=== PATIENT | female | born 1985 | race African-American/Black ===

== ENCOUNTER 2020-11-07 22:40 | Emergency (ER) | payer MEDICAID ==
[~2020-11-07] VITALS: Ht 170.2 cm; Wt 87.1 kg
[2020-11-07 22:55] VITALS: BP_SYST 157
--- NOTE | 2020-11-07 22:55 | NUR ---
Patient to ER bed 4 to gown for evaluation. Side rails up. Report given to FRANCISCO DOCKERY.
--- NOTE | 2020-11-07 22:56 | NUR ---
Came in ER this 35year old female ambulatory from home, AAOX4, breathing spontaneously at room air, not in distress noted. With chief complaints of both inner thigh rashes with pain 2 weeks, known with Hypertension Cor pulmonale and Heart failure on medication, admitted to [facility] and discharge last 10/23/2020. no surgical and no known allergy. initial vital sign taken and recorded, stable
--- NOTE | 2020-11-07 23:00 | NUR ---
ER Dr. BLANKENSHIP at bedside examining patient.
--- NOTE | 2020-11-07 23:22 | NUR ---
Seen and examined by Dr. Shen, ordered to get a swab in inner thigh blister
[2020-11-07] MEDS ORDERED: cefTRIAXone 1 GM in LIDOCAINE 1%, 20 ML MDV 2.1 ML IM ONE (23:30)
[2020-11-07] MEDS ORDERED: HYDROcodone/ACETAMIN 5-325 MG TAB (NORCO/ VICODIN) PO ONE (23:30)
[2020-11-07] MEDS ORDERED: LIDOCAINE 1%, 20 ML MDV 0 ML ONE (23:37)
[2020-11-07] MEDS ORDERED: cefTRIAXone 1 GM VIAL ONE (23:37)
--- NOTE | 2020-11-07 23:45 | NUR ---
Wound culture swab taken by Dr. BLANKENSHIP, ER attending and sent to lab
[2020-11-08] MEDS ORDERED: IBUP-1970 PO (00:01)
--- NOTE | 2020-11-08 00:02 | NUR ---
Ceftriaxone 1gm IV not given,cancelled by Dr. Shen
[2020-11-08 00:30] VITALS: BP_SYST 146
--- NOTE | 2020-11-08 00:30 | NUR ---
Patient given written and verbal discharge instructions and verbalizes understanding. ER MD discussed with patient the results and treatment provided. Patient in stable condition. ID arm band removed. I Rx of given. Patient educated on pain management and to follow up with PMD. Pain Scale 2/10. Opportunity for questions provided and answered. Medication side effect fact sheet provided.
[2020-11-08] MEDS ORDERED: SULF1TAB48 PO (19:00)
== END 2020-11-08 00:30 | disposition home or self-care (01) ==
LOC: SED 22:40
DX: R21 Rash and other nonspecific skin eruption (principal); I11.0 Hypertensive heart disease with heart failure; I50.9 Heart failure, unspecified
CPT/HCPCS: 87070-TC; 87075-TC; 99283; J0696; J2001

== ENCOUNTER 2023-03-11 08:33 | Inpatient (IN) | payer MEDICAID ==
[~2023-03-11] VITALS: Ht 177.8 cm; Wt 112.3 kg
[~2023-03-11 08:33] MED LIST: COR6.25 PO; FURO-149 PO; NEU100 PO; SACU1TAB PO; SILD20TA PO; SPIR25TA PO
[2023-03-11 08:39] VITALS: BP_SYST 152; PULSE 113; RESP 20; TEMP 98; O2SAT 92
[2023-03-11] MEDS ORDERED: levETIRAcetam 500 MG TABLET PO ONE (08:45)
[2023-03-11 09:23] LABS: COVID19 ANTIGEN SOFIA FIA NEGATIVE (NEGATIVE)
[2023-03-11 09:35] LABS: INFLUENZA TYPE A negative (NEGATIVE); INFLUENZA TYPE B NEGATIVE (NEGATIVE)
[2023-03-11 09:54] LABS: BASOPHILS % (AUTO) 0.8 % (0.0-2.0); EOSINOPHILS % (AUTO) 0.6 % (0.0-4.0); HEMATOCRIT 51.9 % (36-48); HEMOGLOBIN 15.9 g/dL (12.0-16.0); LYMPHOCYTES # (AUTO) 1.6 K/uL (1.0-5.5); LYMPHOCYTES % (AUTO) 36.6 % (20.5-51.5); MEAN CORPUSCULAR HEMOGLOBIN 25 pg (27-31); MEAN CORPUSCULAR HGB CONC 31 % (32-36); MEAN CORPUSCULAR VOLUME 81 fL (79.0-98.0); MONOCYTES # (AUTO) 0.3 K/uL (0.0-1.0); MONOCYTES % (AUTO) 7.1 % (1.7-9.3); NEUTROPHILS # (AUTO) 2.5 K/uL (1.8-7.7); NEUTROPHILS % (AUTO) 54.9 % (40.0-70.0); PLATELET COUNT (AUTO) 203 K/uL (130-430); RED BLOOD CELL COUNT(AUTO) 6.45 MIL/uL (4.2-6.2); RED CELL DISTRIBUTION WIDTH 17.9 % (9.0-15.0); WHITE BLOOD COUNT (AUTO) 4.5 K/uL (4.8-10.8)
[2023-03-11 09:58] LABS: SERUM HCG (QUALITATIVE) NEGATIVE (NEGATIVE)
[2023-03-11 10:04] LABS: ANION GAP 11 (5-15); CALCIUM 8.3 mg/dL (8.4-11.0); CARBON DIOXIDE 28 mmol/L (23-29); CHLORIDE 101 mmol/L (98-107); CREATININE 1.46 mg/dL (0.55-1.30); GFR AFRICAN AMERICAN 51 mL/min (>90); GFR NON AFRICAN-AMERICAN 42 mL/min (>90); GLUCOSE 98 mg/dL (74-106); POTASSIUM 3.4 mmol/L (3.5-5.1); SODIUM SERUM 140 mmol/L (136-145); UREA NITROGEN, BLOOD 21 mg/dL (8-21)
[2023-03-11 10:07] LABS: INR 1.4 (0.8-1.2); PROTHROMBIN TIME 13.8 SECS (9.5-12.5)
[2023-03-11 10:23] LABS: ALANINE AMINOTRANSFERASE 23 U/L (12-78); ALBUMIN 2.9 g/dL (3.4-4.8); ASPARTATE AMINOTRANSFERASE 40 U/L (10-37); TOTAL BILIRUBIN 1.1 mg/dL (0.0-1.0); TOTAL PROTEIN, SERUM 6.6 g/dL (6.4-8.3)
[2023-03-11] MEDS ORDERED: ASPIRIN 81 MG TAB.CHEW PO ONE (10:30)
[2023-03-11] MEDS ORDERED: ASPIRIN 81 MG TAB.CHEW ONE (10:31)
[2023-03-11 11:18] LABS: ANISOCYTOSIS 1+; HYPOCHROMASIA 1+
[2023-03-11 11:19] LABS: OVALOCYTES FEW; TARGET CELLS FEW
[2023-03-11] MEDS ORDERED: CARVEDILOL 6.25 MG TABLET (COREG) PO SCH (21:00)
[2023-03-11] MEDS ORDERED: SACUBITRIL/VALSARTAN 24 MG-26 MG 1 TABLET PO SCH (21:00)
[2023-03-11] MEDS ORDERED: hydrALAZINE HCL 20 MG/ML VIAL IVP PRN (22:00)
[2023-03-11] MEDS ORDERED: NALOXONE HCL 0.4 MG/ML AMP (NARCAN) IVP PRN ×2 (22:00)
[2023-03-11] MEDS: ONDANSETRON HCL 4 MG/2 ML VIAL IVP PRN (22:25)
[2023-03-11] MEDS: MORPHINE 2 MG/ML INJ. SYRINGE IVP PRN (22:28)
[2023-03-11] MEDS: SILDENAFIL CITRATE 20 MG TABLET PO SCH (22:34)
[2023-03-11] MEDS: GABAPENTIN 100 MG CAPSULE PO SCH (22:35)
[2023-03-11] MEDS: FUROSEMIDE 40 MG TABLET PO SCH (22:35)
[2023-03-12] VITALS (8 sets, daily range): BP systolic 70–165; PULSE 80–106; RESP 16–23; TEMP 97–98.4; O2SAT 94–99
[2023-03-12] MEDS: MORPHINE 2 MG/ML INJ. SYRINGE IVP PRN (03:52)
[2023-03-12] MEDS: ONDANSETRON HCL 4 MG/2 ML VIAL IVP PRN (03:53)
[2023-03-12 06:51] LABS: BASOPHILS % (AUTO) 0.6 % (0.0-2.0); HEMATOCRIT 52.6 % (36-48); HEMOGLOBIN 15.9 g/dL (12.0-16.0); LYMPHOCYTES % (AUTO) 54.2 % (20.5-51.5); MEAN CORPUSCULAR HEMOGLOBIN 25 pg (27-31); MEAN CORPUSCULAR HGB CONC 30 % (32-36); MEAN CORPUSCULAR VOLUME 82 fL (79.0-98.0); MONOCYTES # (AUTO) 0.5 K/uL (0.0-1.0); MONOCYTES % (AUTO) 12.7 % (1.7-9.3); NEUTROPHILS # (AUTO) 1.2 K/uL (1.8-7.7); PLATELET COUNT (AUTO) 206 K/uL (130-430); RED BLOOD CELL COUNT(AUTO) 6.45 MIL/uL (4.2-6.2); WHITE BLOOD COUNT (AUTO) 3.8 K/uL (4.8-10.8)
[2023-03-12 07:56] LABS: CREATININE 1.31 mg/dL (0.55-1.30); POTASSIUM 4.2 mmol/L (3.5-5.1); TOTAL BILIRUBIN 1.2 mg/dL (0.0-1.0); TOTAL PROTEIN, SERUM 6.9 g/dL (6.4-8.3)
[2023-03-12 08:13] LABS: NEUTROPHILS % (AUTO) 31.5 % (40.0-70.0)
[2023-03-12] MEDS ORDERED: levETIRAcetam 500 MG TABLET PO SCH (09:00)
[2023-03-12] MEDS: levETIRAcetam 500 MG TABLET PO SCH ×2 (09:08→20:27)
[2023-03-12] MEDS: SILDENAFIL CITRATE 20 MG TABLET PO SCH ×3 (09:08→20:31)
[2023-03-12] MEDS: CARVEDILOL 12.5 MG TABLET (COREG) PO SCH ×2 (09:09→20:25)
[2023-03-12] MEDS: GABAPENTIN 100 MG CAPSULE PO SCH ×3 (09:10→20:29)
[2023-03-12] MEDS: FUROSEMIDE 40 MG TABLET PO SCH ×2 (09:10→20:29)
[2023-03-12] MEDS: SACUBITRIL/VALSARTAN 24 MG-26 MG 1 TABLET PO SCH ×2 (09:11→20:27)
[2023-03-12] MEDS ORDERED: ALBUMIN HUMAN 25% 100 ML IV ONE (13:15)
[2023-03-13] VITALS (8 sets, daily range): BP systolic 93–112; PULSE 55–103; RESP 18–20; TEMP 96.7–97.9; O2SAT 93–99
[2023-03-13] MEDS: GABAPENTIN 100 MG CAPSULE PO SCH ×3 (08:59→21:43)
[2023-03-13] MEDS: FUROSEMIDE 40 MG TABLET PO SCH ×2 (09:00→21:42)
[2023-03-13] MEDS: SACUBITRIL/VALSARTAN 24 MG-26 MG 1 TABLET PO SCH ×2 (09:00→21:42)
[2023-03-13] MEDS: SILDENAFIL CITRATE 20 MG TABLET PO SCH ×3 (09:00→21:40)
[2023-03-13] MEDS: CARVEDILOL 12.5 MG TABLET (COREG) PO SCH ×2 (09:00→21:41)
[2023-03-13] MEDS: levETIRAcetam 500 MG TABLET PO SCH ×2 (09:01→21:41)
[2023-03-13] MEDS: MORPHINE 2 MG/ML INJ. SYRINGE IVP PRN (17:11)
[2023-03-13 17:40] LABS: BARBITURATE, URINE NEGATIVE (NEG <=200); BENZODIAZEPINE, URINE NEGATIVE (NEG <=150); CANNABINOID, URINE NEGATIVE (NEG <=50); COCAINE, URINE NEGATIVE (NEG <=150); METHAMPHETAMINES SCREEN,URINE POSITIVE (NEG <=500); OPIATE, URINE POSITIVE (NEG <=100); PHENCYCLIDINE SCREEN,URINE NEGATIVE (NEG <=25); UR TRICYCLIC ANTIDEPRESSANTS NEGATIVE (NEG <=300); URINE AMPHETAMINE POSITIVE (NEG <=500); URINE METHADONE NEGATIVE (NEG <=200); URINE OXYCODONE SCREEN NEGATIVE (NEG <=100); URINE PROPOXYPHENE SCREEN NEGATIVE (NEG <=300)
[2023-03-14] VITALS (8 sets, daily range): BP systolic 90–123; PULSE 93–105; RESP 18–20; TEMP 96.9–98.4; O2SAT 95–100
[2023-03-14 04:58] LABS: BASOPHILS % (AUTO) 1.1 % (0.0-2.0); EOSINOPHILS # (AUTO) 0.2 K/uL (0.0-0.4); EOSINOPHILS % (AUTO) 3.4 % (0.0-4.0); HEMATOCRIT 44.8 % (36-48); HEMOGLOBIN 13.7 g/dL (12.0-16.0); LYMPHOCYTES % (AUTO) 43.1 % (20.5-51.5); MEAN CORPUSCULAR HEMOGLOBIN 25 pg (27-31); MEAN CORPUSCULAR HGB CONC 31 % (32-36); MEAN CORPUSCULAR VOLUME 81 fL (79.0-98.0); MONOCYTES # (AUTO) 0.6 K/uL (0.0-1.0); NEUTROPHILS # (AUTO) 1.8 K/uL (1.8-7.7); NEUTROPHILS % (AUTO) 39.4 % (40.0-70.0); PLATELET COUNT (AUTO) 202 K/uL (130-430); RED BLOOD CELL COUNT(AUTO) 5.56 MIL/uL (4.2-6.2); RED CELL DISTRIBUTION WIDTH 17.6 % (9.0-15.0); WHITE BLOOD COUNT (AUTO) 4.6 K/uL (4.8-10.8)
[2023-03-14 05:14] LABS: ALBUMIN 2.5 g/dL (3.4-4.8); CALCIUM 7.5 mg/dL (8.4-11.0); CREATININE 1.29 mg/dL (0.55-1.30); TOTAL BILIRUBIN 0.6 mg/dL (0.0-1.0); TOTAL PROTEIN, SERUM 5.5 g/dL (6.4-8.3)
[2023-03-14] MEDS: HYDROcodone/ACETAMIN 10-325 MG TAB PO PRN (06:47)
[2023-03-14] MEDS: SILDENAFIL CITRATE 20 MG TABLET PO SCH ×3 (09:00→21:00)
[2023-03-14] MEDS: FUROSEMIDE 40 MG/4 ML VIAL IVP SCH ×2 (09:00→23:24)
[2023-03-14] MEDS: CARVEDILOL 12.5 MG TABLET (COREG) PO SCH ×2 (09:00→21:00)
[2023-03-14] MEDS: SACUBITRIL/VALSARTAN 24 MG-26 MG 1 TABLET PO SCH ×2 (09:00→21:00)
[2023-03-14] MEDS: levETIRAcetam 500 MG TABLET PO SCH ×2 (09:33→21:04)
[2023-03-14] MEDS: GABAPENTIN 100 MG CAPSULE PO SCH ×3 (09:33→21:04)
[2023-03-14] MEDS: HYDROcodone/ACETAMIN 5-325 MG TAB (NORCO/ VICODIN) PO PRN (21:12)
[2023-03-15] VITALS (8 sets, daily range): BP systolic 90–120; PULSE 77–103; RESP 14–19; TEMP 96.8–97.6; O2SAT 93–98
[2023-03-15] MEDS: HYDROcodone/ACETAMIN 10-325 MG TAB PO PRN (02:15)
[2023-03-15 06:17] LABS: ALBUMIN 2.7 g/dL (3.4-4.8); CALCIUM 7.9 mg/dL (8.4-11.0); CREATININE 1.29 mg/dL (0.55-1.30); POTASSIUM 4.3 mmol/L (3.5-5.1); TOTAL BILIRUBIN 0.8 mg/dL (0.0-1.0); TOTAL PROTEIN, SERUM 6.1 g/dL (6.4-8.3)
[2023-03-15] MEDS: SILDENAFIL CITRATE 20 MG TABLET PO SCH ×3 (08:59→21:52)
[2023-03-15] MEDS: GABAPENTIN 100 MG CAPSULE PO SCH ×3 (09:00→21:52)
[2023-03-15] MEDS ORDERED: metOLazone 5 MG TABLET PO ONE (09:00)
[2023-03-15] MEDS: CARVEDILOL 12.5 MG TABLET (COREG) PO SCH ×2 (09:01→21:00)
[2023-03-15] MEDS: levETIRAcetam 500 MG TABLET PO SCH ×2 (09:01→21:52)
[2023-03-15] MEDS: SACUBITRIL/VALSARTAN 24 MG-26 MG 1 TABLET PO SCH ×2 (09:01→21:00)
[2023-03-15] MEDS: FUROSEMIDE 40 MG/4 ML VIAL IVP SCH ×2 (09:02→21:00)
[2023-03-15] MEDS: HYDROcodone/ACETAMIN 5-325 MG TAB (NORCO/ VICODIN) PO PRN (09:04)
[2023-03-15] MEDS: MORPHINE 2 MG/ML INJ. SYRINGE IVP PRN (09:56)
[2023-03-16 00:11] VITALS: BP_SYST 108; PULSE 92; RESP 14; TEMP 96.8; O2SAT 96
[2023-03-16 04:45] VITALS: BP_SYST 115; PULSE 100; RESP 16; TEMP 97.6; O2SAT 98
[2023-03-16] MEDS: MORPHINE 2 MG/ML INJ. SYRINGE IVP PRN ×2 (04:57→08:17)
[2023-03-16 07:46] VITALS: BP_SYST 119; PULSE 98; RESP 20; TEMP 96.8; O2SAT 98
[2023-03-16] MEDS: CARVEDILOL 12.5 MG TABLET (COREG) PO SCH ×2 (08:10→20:25)
[2023-03-16] MEDS: levETIRAcetam 500 MG TABLET PO SCH ×2 (08:10→20:25)
[2023-03-16] MEDS: GABAPENTIN 100 MG CAPSULE PO SCH ×3 (08:10→20:25)
[2023-03-16] MEDS: SILDENAFIL CITRATE 20 MG TABLET PO SCH ×4 (08:11→20:25)
[2023-03-16] MEDS: SACUBITRIL/VALSARTAN 24 MG-26 MG 1 TABLET PO SCH ×2 (08:14→20:25)
[2023-03-16] MEDS: FUROSEMIDE 40 MG/4 ML VIAL IVP SCH ×2 (08:16→23:44)
[2023-03-16 15:30] VITALS: BP_SYST 87; PULSE 97; RESP 20; TEMP 97.5; O2SAT 92
[2023-03-16] MEDS: HYDROcodone/ACETAMIN 10-325 MG TAB PO PRN (16:21)
[2023-03-16 19:50] VITALS: O2SAT 97
[2023-03-16 20:07] VITALS: BP_SYST 109; PULSE 93; RESP 18; TEMP 97.4; O2SAT 97
[2023-03-16] MEDS ORDERED: ALBUMIN HUMAN 25% 50 ML IV ONE ×2 (23:30→23:31)
[2023-03-17] VITALS (10 sets, daily range): BP systolic 80–100; PULSE 75–104; RESP 16–20; TEMP 96.5–97.6; O2SAT 95–99
[2023-03-17] MEDS: HYDROcodone/ACETAMIN 10-325 MG TAB PO PRN ×2 (04:46→16:07)
[2023-03-17 05:51] LABS: CALCIUM 8.5 mg/dL (8.4-11.0); CREATININE 1.4 mg/dL (0.55-1.30); POTASSIUM 4.4 mmol/L (3.5-5.1)
[2023-03-17] MEDS: FUROSEMIDE 40 MG/4 ML VIAL IVP SCH ×2 (09:00→22:20)
[2023-03-17] MEDS: CARVEDILOL 12.5 MG TABLET (COREG) PO SCH ×2 (09:00→22:21)
[2023-03-17] MEDS: SACUBITRIL/VALSARTAN 24 MG-26 MG 1 TABLET PO SCH ×2 (09:00→22:22)
[2023-03-17] MEDS: SILDENAFIL CITRATE 20 MG TABLET PO SCH ×3 (09:00→22:21)
[2023-03-17] MEDS: GABAPENTIN 100 MG CAPSULE PO SCH ×3 (09:05→22:21)
[2023-03-17] MEDS: levETIRAcetam 500 MG TABLET PO SCH ×2 (09:05→22:20)
[2023-03-17] MEDS: MORPHINE 2 MG/ML INJ. SYRINGE IVP PRN (22:23)
[2023-03-18] VITALS: BP_SYST 105; PULSE 100; RESP 18; TEMP 97; O2SAT 95
[2023-03-18 08:00] VITALS: BP_SYST 96; PULSE 101; RESP 18; TEMP 97; O2SAT 97
[2023-03-18] MEDS: CARVEDILOL 12.5 MG TABLET (COREG) PO SCH ×2 (09:00→21:26)
[2023-03-18] MEDS: SACUBITRIL/VALSARTAN 24 MG-26 MG 1 TABLET PO SCH ×2 (09:00→21:27)
[2023-03-18] MEDS: metOLazone 2.5 MG TABLET PO SCH (09:00)
[2023-03-18] MEDS: FUROSEMIDE 40 MG/4 ML VIAL IVP SCH ×2 (09:00→21:00)
[2023-03-18] MEDS: levETIRAcetam 500 MG TABLET PO SCH ×2 (09:57→21:26)
[2023-03-18] MEDS: GABAPENTIN 100 MG CAPSULE PO SCH ×3 (09:58→21:25)
[2023-03-18] MEDS: SILDENAFIL CITRATE 20 MG TABLET PO SCH ×3 (10:00→21:33)
[2023-03-18 12:30] VITALS: BP_SYST 101; PULSE 97; RESP 18; TEMP 97.6; O2SAT 94
[2023-03-18 16:45] VITALS: BP_SYST 100; PULSE 90; RESP 17; TEMP 98; O2SAT 94
[2023-03-18 20:00] VITALS: BP_SYST 117; PULSE 109; RESP 18; TEMP 98.2; O2SAT 94
[2023-03-18 20:30] VITALS: O2SAT 94
[2023-03-18] MEDS: MORPHINE 2 MG/ML INJ. SYRINGE IVP PRN (21:11)
[2023-03-18] MEDS: ONDANSETRON HCL 4 MG/2 ML VIAL IVP PRN (21:25)
[2023-03-19] VITALS (7 sets, daily range): BP systolic 91–119; PULSE 75–107; RESP 18; TEMP 96.9–98; O2SAT 95–100
[2023-03-19] MEDS: MORPHINE 2 MG/ML INJ. SYRINGE IVP PRN ×2 (01:16→21:00)
[2023-03-19 06:57] LABS: ALBUMIN 2.5 g/dL (3.4-4.8); CALCIUM 7.8 mg/dL (8.4-11.0); CREATININE 1.41 mg/dL (0.55-1.30); POTASSIUM 4.2 mmol/L (3.5-5.1); TOTAL BILIRUBIN 0.9 mg/dL (0.0-1.0); TOTAL PROTEIN, SERUM 5.9 g/dL (6.4-8.3)
[2023-03-19 07:26] LABS: EOSINOPHILS % (AUTO) 0.3 % (0.0-4.0); HEMATOCRIT 46.1 % (36-48); LYMPHOCYTES % (AUTO) 23.1 % (20.5-51.5); MEAN CORPUSCULAR HEMOGLOBIN 25 pg (27-31); MEAN CORPUSCULAR HGB CONC 30 % (32-36); MEAN CORPUSCULAR VOLUME 81 fL (79.0-98.0); MONOCYTES # (AUTO) 0.5 K/uL (0.0-1.0); MONOCYTES % (AUTO) 10.6 % (1.7-9.3); NEUTROPHILS # (AUTO) 2.9 K/uL (1.8-7.7); PLATELET COUNT (AUTO) 167 K/uL (130-430); RED BLOOD CELL COUNT(AUTO) 5.71 MIL/uL (4.2-6.2); RED CELL DISTRIBUTION WIDTH 17.5 % (9.0-15.0); WHITE BLOOD COUNT (AUTO) 4.5 K/uL (4.8-10.8)
[2023-03-19] MEDS: metOLazone 2.5 MG TABLET PO SCH (09:00)
[2023-03-19] MEDS: FUROSEMIDE 40 MG/4 ML VIAL IVP SCH ×2 (09:00→20:56)
[2023-03-19] MEDS: CARVEDILOL 12.5 MG TABLET (COREG) PO SCH ×2 (09:00→21:03)
[2023-03-19] MEDS: SILDENAFIL CITRATE 20 MG TABLET PO SCH ×3 (09:40→21:00)
[2023-03-19] MEDS: levETIRAcetam 500 MG TABLET PO SCH ×2 (09:40→21:00)
[2023-03-19] MEDS: GABAPENTIN 100 MG CAPSULE PO SCH ×3 (09:40→21:00)
[2023-03-19] MEDS: HYDROcodone/ACETAMIN 10-325 MG TAB PO PRN (09:41)
[2023-03-19] MEDS: SACUBITRIL/VALSARTAN 24 MG-26 MG 1 TABLET PO SCH ×2 (09:43→21:04)
[2023-03-19] MEDS: ONDANSETRON HCL 4 MG/2 ML VIAL IVP PRN (21:00)
[2023-03-20] VITALS (8 sets, daily range): BP systolic 87–136; PULSE 87–102; RESP 16–20; TEMP 96.9–97.9; O2SAT 95–100
[2023-03-20] MEDS: HYDROcodone/ACETAMIN 10-325 MG TAB PO PRN (00:48)
[2023-03-20 05:06] LABS: CREATININE 1.34 mg/dL (0.55-1.30); POTASSIUM 3.7 mmol/L (3.5-5.1)
[2023-03-20 05:18] LABS: BASOPHILS % (AUTO) 1.2 % (0.0-2.0); EOSINOPHILS # (AUTO) 0.1 K/uL (0.0-0.4); HEMATOCRIT 44.8 % (36-48); HEMOGLOBIN 14.1 g/dL (12.0-16.0); LYMPHOCYTES # (AUTO) 2.1 K/uL (1.0-5.5); LYMPHOCYTES % (AUTO) 53.6 % (20.5-51.5); MEAN CORPUSCULAR HEMOGLOBIN 25 pg (27-31); MEAN CORPUSCULAR HGB CONC 31 % (32-36); MEAN CORPUSCULAR VOLUME 80 fL (79.0-98.0); MONOCYTES # (AUTO) 0.6 K/uL (0.0-1.0); MONOCYTES % (AUTO) 16.7 % (1.7-9.3); NEUTROPHILS % (AUTO) 26.5 % (40.0-70.0); PLATELET COUNT (AUTO) 192 K/uL (130-430); RED BLOOD CELL COUNT(AUTO) 5.61 MIL/uL (4.2-6.2); RED CELL DISTRIBUTION WIDTH 17.5 % (9.0-15.0); WHITE BLOOD COUNT (AUTO) 3.8 K/uL (4.8-10.8)
[2023-03-20] MEDS: CARVEDILOL 12.5 MG TABLET (COREG) PO SCH ×2 (09:00→21:00)
[2023-03-20] MEDS: FUROSEMIDE 40 MG/4 ML VIAL IVP SCH ×2 (09:00→21:00)
[2023-03-20] MEDS: metOLazone 2.5 MG TABLET PO SCH (09:00)
[2023-03-20] MEDS: SACUBITRIL/VALSARTAN 24 MG-26 MG 1 TABLET PO SCH ×2 (09:00→21:00)
[2023-03-20] MEDS: SILDENAFIL CITRATE 20 MG TABLET PO SCH ×3 (09:00→21:36)
[2023-03-20] MEDS: GABAPENTIN 100 MG CAPSULE PO SCH ×3 (09:34→21:36)
[2023-03-20] MEDS: levETIRAcetam 500 MG TABLET PO SCH ×2 (09:34→21:35)
[2023-03-20] MEDS: MORPHINE 2 MG/ML INJ. SYRINGE IVP PRN ×2 (16:13→23:31)
[2023-03-21 00:32] VITALS: BP_SYST 107; PULSE 66; RESP 18; TEMP 97.4; O2SAT 94
[2023-03-21 08:09] VITALS: BP_SYST 95; PULSE 88; RESP 18; TEMP 97; O2SAT 94
[2023-03-21] MEDS: SILDENAFIL CITRATE 20 MG TABLET PO SCH ×2 (09:00→15:27)
[2023-03-21] MEDS: metOLazone 2.5 MG TABLET PO SCH (09:00)
[2023-03-21] MEDS: CARVEDILOL 12.5 MG TABLET (COREG) PO SCH (09:00)
[2023-03-21] MEDS: SACUBITRIL/VALSARTAN 24 MG-26 MG 1 TABLET PO SCH (09:00)
[2023-03-21] MEDS ORDERED: FUROSEMIDE 40 MG TABLET PO SCH (09:00)
[2023-03-21] MEDS: levETIRAcetam 500 MG TABLET PO SCH (09:03)
[2023-03-21] MEDS: GABAPENTIN 100 MG CAPSULE PO SCH ×2 (09:03→15:27)
[2023-03-21 09:21] VITALS: O2SAT 94
[2023-03-21] MEDS: HYDROcodone/ACETAMIN 10-325 MG TAB PO PRN (12:26)
[2023-03-21 16:00] VITALS: BP_SYST 122; PULSE 93; RESP 18; TEMP 98; O2SAT 100
== END 2023-03-21 18:25 | disposition home or self-care (01) | DRG 190 ==
LOC: SED 08:33 → STU 11:57
PROVIDERS: ADMIT Internal Medicine; ATTEND Internal Medicine
DX: I21.4 Non-ST elevation (NSTEMI) myocardial infarction (principal); R65.11 Systemic inflammatory response syndrome (SIRS) of non-infectious origin with acute organ dysfunction; I50.43 Acute on chronic combined systolic (congestive) and diastolic (congestive) heart failure; I11.0 Hypertensive heart disease with heart failure; I27.20 Pulmonary hypertension, unspecified; I42.9 Cardiomyopathy, unspecified; G40.909 Epilepsy, unspecified, not intractable, without status epilepticus; R32 Unspecified urinary incontinence; Z20.822 Contact with and (suspected) exposure to COVID-19; Z59.01 Sheltered homelessness; Z79.899 Other long term (current) drug therapy; Z82.49 Family history of ischemic heart disease and other diseases of the circulatory system; Z86.718 Personal history of other venous thrombosis and embolism; Z86.73 Personal history of transient ischemic attack (TIA), and cerebral infarction without residual deficits
CPT/HCPCS: 36415; 71045; 80048; 80053; 80307; 83605; 83880; 84484; 84703; 85025; 85610-TC; 85730-TC; 87081; 97110-GP; 97116-GP; 97530-GP; 99285; G0378; J0360; J1940; J2270; J2405; J7030; P9046

== ENCOUNTER 2023-10-10 16:39 | Observation (INO) | payer MEDICAID ==
[~2023-10-10] VITALS: Ht 172.7 cm; Wt 96.2 kg
[~2023-10-10 16:39] MED LIST changes: -SPIR25TA PO
[2023-10-10 16:50] VITALS: BP_SYST 101; PULSE 88; RESP 19; TEMP 98; O2SAT 95
[2023-10-10] MEDS: MORPHINE 2 MG/ML INJ. SYRINGE IVP ONE ×2 (17:53→20:27)
[2023-10-10 18:08] LABS: BASOPHILS # (AUTO) 0.1 K/uL (0.0-0.2); BASOPHILS % (AUTO) 1.3 % (0.0-2.0); EOSINOPHILS # (AUTO) 0.2 K/uL (0.0-0.4); EOSINOPHILS % (AUTO) 3.2 % (0.0-4.0); HEMATOCRIT 46.2 % (36-48); HEMOGLOBIN 14.8 g/dL (12.0-16.0); LYMPHOCYTES # (AUTO) 1.7 K/uL (1.0-5.5); MEAN CORPUSCULAR HEMOGLOBIN 25 pg (27-31); MEAN CORPUSCULAR HGB CONC 32 % (32-36); MEAN CORPUSCULAR VOLUME 79 fL (79.0-98.0); MONOCYTES # (AUTO) 0.7 K/uL (0.0-1.0); MONOCYTES % (AUTO) 15.5 % (1.7-9.3); NEUTROPHILS # (AUTO) 2.1 K/uL (1.8-7.7); PLATELET COUNT (AUTO) 274 K/uL (130-430); RED BLOOD CELL COUNT(AUTO) 5.85 MIL/uL (4.2-6.2); RED CELL DISTRIBUTION WIDTH 18.5 % (9.0-15.0); WHITE BLOOD COUNT (AUTO) 4.7 K/uL (4.8-10.8)
[2023-10-10 18:16] LABS: ANION GAP 10 (5-15); CALCIUM 9.3 mg/dL (8.4-11.0); CARBON DIOXIDE 27 mmol/L (23-29); CHLORIDE 103 mmol/L (98-107); CREATININE 1.06 mg/dL (0.55-1.30); GFR AFRICAN AMERICAN 74 mL/min (>90); GFR NON AFRICAN-AMERICAN 61 mL/min (>90); GLUCOSE 74 mg/dL (74-106); POTASSIUM 4.2 mmol/L (3.5-5.1); SODIUM SERUM 140 mmol/L (136-145); UREA NITROGEN, BLOOD 21 mg/dL (8-21)
[2023-10-10 18:22] LABS: ALANINE AMINOTRANSFERASE 19 U/L (12-78); ALBUMIN 3.1 g/dL (3.4-4.8); ASPARTATE AMINOTRANSFERASE 21 U/L (10-37); BILIRUBIN,DIRECT 0.4 mg/dL (0.0-0.3); TOTAL BILIRUBIN 0.8 mg/dL (0.0-1.0); TOTAL PROTEIN, SERUM 7.6 g/dL (6.4-8.3)
[2023-10-10] MEDS ORDERED: METO25TA6 PO (18:44)
[2023-10-10] MEDS ORDERED: SPIR25TA6 PO (18:44)
[2023-10-10] MEDS ORDERED: FURO40TA5 PO (18:44)
[2023-10-10] MEDS ORDERED: SILD20TA10 PO (18:44)
[2023-10-10] MEDS ORDERED: HYDR25TA86 PO (18:44)
[2023-10-10 19:39] LABS: INFLUENZA TYPE A Negative (NEGATIVE); INFLUENZA TYPE B NEGATIVE (NEGATIVE)
[2023-10-10] MEDS ORDERED: ACETAMINOPHEN 325 MG TABLET PO PRN (20:00)
[2023-10-10] MEDS ORDERED: IPRATROPIUM/ALBUTEROL SULFATE 3 ML AMPUL.NEB (DUONEB) INH PRN (20:00)
[2023-10-10] MEDS ORDERED: MUPIROCIN 2% TOPICAL OINTMENT 22 GM NS PRN (20:15)
[2023-10-10] MEDS ORDERED: ZOLPIDEM TARTRATE 5 MG TABLET PO PRN (20:15)
[2023-10-10] MEDS ORDERED: ACETAMINOPHEN 500 MG TABLET PO PRN ×3 (20:15)
[2023-10-10] MEDS ORDERED: POTASSIUM CHLORIDE 20 MEQ TABLET.ER PO PRN (20:15)
[2023-10-10] MEDS ORDERED: DOCUSATE SODIUM 100 MG CAPSULE PO PRN (20:15)
[2023-10-10] MEDS ORDERED: MAGNESIUM SULFATE 50 ML IV PRN (20:15)
[2023-10-10 20:22] VITALS: BP_SYST 103; PULSE 86; O2SAT 96
[2023-10-10] MEDS: FUROSEMIDE 40 MG/4 ML VIAL IVP ONE (20:27)
[2023-10-10] MEDS: ONDANSETRON HCL 4 MG/2 ML VIAL IVP PRN (20:35)
[2023-10-10] MEDS: GABAPENTIN 100 MG CAPSULE PO SCH (21:25)
[2023-10-10] MEDS: CARVEDILOL 6.25 MG TABLET (COREG) PO SCH (21:25)
[2023-10-10] MEDS: SILDENAFIL CITRATE 20 MG TABLET PO SCH (21:26)
[2023-10-10] MEDS: HEPARIN SODIUM,PORCINE 5,000 UNITS/ML VIAL SUBCUT SCH (21:30)
[2023-10-11] MEDS: IBUPROFEN 800 MG TABLET PO PRN (07:46)
[2023-10-11] MEDS ORDERED: IBUPROFEN 800 MG TABLET ONE (07:47)
[2023-10-11 09:09] LABS: BILIRUBIN,URINE NEGATIVE (NEGATIVE); BLOOD, URINE NEGATIVE (NEGATIVE); CLARITY/URINE CLEAR (CLEAR); COLOR,URINE YELLOW (YELLOW); GLUCOSE,URINE NEGATIVE (NEGATIVE); KETONES,URINE NEGATIVE (NEGATIVE); LEUKOCYTE ESTERASE ,URINE 1+ (NEGATIVE); NITRITE, URINE NEGATIVE (NEGATIVE); PROTEIN URINE NEGATIVE (NEGATIVE); UROBILINOGEN,URINE 0.2 (0.2-1.0)
[2023-10-11 09:25] LABS: BARBITURATE, URINE NEGATIVE (NEG <=200); BENZODIAZEPINE, URINE NEGATIVE (NEG <=150); CANNABINOID, URINE NEGATIVE (NEG <=50); COCAINE, URINE POSITIVE (NEG <=150); METHAMPHETAMINES SCREEN,URINE NEGATIVE (NEG <=500); OPIATE, URINE POSITIVE (NEG <=100); PHENCYCLIDINE SCREEN,URINE NEGATIVE (NEG <=25); URINE AMPHETAMINE NEGATIVE (NEG <=500); URINE METHADONE NEGATIVE (NEG <=200); URINE OXYCODONE SCREEN NEGATIVE (NEG <=100)
[2023-10-11 09:26] LABS: UR TRICYCLIC ANTIDEPRESSANTS NEGATIVE (NEG <=300)
[2023-10-11 09:34] LABS: BACTERIA,URINE None Seen /HPF (None Seen); RBC,URINE 0-3 /HPF (0-3)
[2023-10-11] MEDS: FUROSEMIDE 40 MG/4 ML VIAL IVP SCH (10:09)
[2023-10-11] MEDS ORDERED: GABA-529 PO (10:10)
[2023-10-11] MEDS ORDERED: GABAPENTIN 100 MG CAPSULE PO SCH (12:32)
[2023-10-11 16:23] VITALS: BP_SYST 98; PULSE 83; RESP 15; TEMP 98.1; O2SAT 96
[2023-10-11] MEDS: GABAPENTIN 100 MG CAPSULE PO SCH (16:29)
[2023-10-11 16:33] VITALS: BP_SYST 102; PULSE 78; RESP 15; TEMP 97.3
[2023-10-11 17:15] VITALS: O2SAT 2
[2023-10-11 20:00] VITALS: BP_SYST 108; PULSE 78; RESP 18; TEMP 97; O2SAT 96
[2023-10-12 00:25] VITALS: BP_SYST 99; PULSE 87; RESP 19; TEMP 98.2; O2SAT 96
[2023-10-12 07:36] VITALS: BP_SYST 115; BP_SYST 149; PULSE 68; PULSE 69; RESP 17; TEMP 98.3; TEMP 98.8; O2SAT 96
[2023-10-12 12:00] VITALS: BP_SYST 115; PULSE 88; RESP 16; TEMP 98.7; O2SAT 100
[2023-10-12 14:17] VITALS: BP_SYST 115; PULSE 88; RESP 16; TEMP 98.7; O2SAT 100
== END 2023-10-12 14:28 | disposition home or self-care (01) ==
LOC: SED 16:39 → INTOOBSV 19:56 → STU 19:56
PROVIDERS: ADMIT General Practice; ATTEND General Practice
DX: I11.0 Hypertensive heart disease with heart failure (principal); Z20.822 Contact with and (suspected) exposure to COVID-19; I50.43 Acute on chronic combined systolic (congestive) and diastolic (congestive) heart failure; I42.9 Cardiomyopathy, unspecified; I27.20 Pulmonary hypertension, unspecified; E44.1 Mild protein-calorie malnutrition; G40.909 Epilepsy, unspecified, not intractable, without status epilepticus; I07.1 Rheumatic tricuspid insufficiency; F11.20 Opioid dependence, uncomplicated; Z59.01 Sheltered homelessness; Z79.899 Other long term (current) drug therapy; Z86.718 Personal history of other venous thrombosis and embolism; Z86.73 Personal history of transient ischemic attack (TIA), and cerebral infarction without residual deficits; Z63.5 Disruption of family by separation and divorce
CPT/HCPCS: 96372 ×2; 96374; 96375; 96376 ×3; 80076; 80048; 83880; 85025; 87040; 84484; 36415 ×2; 93005 ×2; 71045; 76376; 74176; 94640; 94760; 99285; 83605; 87804 ×2; 87426; 80307; 81000; 81015; 81001; 85730; 93306; J2405; J2270; G0378 ×3; J1644 ×2; J1940